=== PATIENT | female | born 1930 | race African-American/Black ===

== ENCOUNTER 2019-02-05 23:37 | Emergency (ER) | payer OTHER ==
[~2019-02-05] VITALS: Ht 170.2 cm; Wt 82.0 kg
[~2019-02-05 23:37] MED LIST: ALLO100T PO; BISO5TAB13 PO; OMEP20CA5 PO; TRAZ-251 PO
[2019-02-06 00:52] LABS: BASOPHILS % 0.5 % (0.0-2.0); EOSINOPHILS % 1.8 % (0.0-5.0); HEMATOCRIT. 39.3 % (36.0-48.0); HEMOGLOBIN. 12.9 g/dL (12.0-16.0); LYMPHOCYTES % 44.8 % (20.0-50.0); MEAN CORPUSCULAR HEMOGLOBIN 35.5 pg (28.0-32.0); MEAN CORPUSCULAR VOLUME 107.9 fL (81.0-99.0); MEAN PLATELET VOLUME 9.1 fl (7.4-10.4); MONOCYTES % 12.1 % (2.0-8.0); NEUTROPHILS % 40.8 % (40.0-76.0); PLATELET 156 x1000/uL (130-400); RED BLOOD CELL COUNT 3.64 mill/uL (4.2-5.4); RED CELL DISTRIBUTION WIDTH 12.8 % (11.6-14.6)
[2019-02-06] MEDS ORDERED: DEXAMETHASONE 10 MG/ML VIAL IV ONE (01:00)
[2019-02-06 01:03] LABS: CHLORIDE 107 mEq/L (98-107)
[2019-02-06 01:07] LABS: ETHANOL BLOOD < 10 mg/dL
[2019-02-06] MEDS ORDERED: LABETALOL 5MG/ML SYR 20 MG/4 ML SYRINGE IV ONE (01:30)
[2019-02-06] MEDS ORDERED: ASPIRIN 300MG SUPP PR ONE (01:30)
[2019-02-06 03:11] LABS: CLARITY URINE CLEAR (CLEAR); COLOR URINE YELLOW (YELLOW); KETONES URINE NEGATIVE (NEGATIVE); LEUKOCYTE ESTERASE URINE 1+ (NEGATIVE); NITRITE URINE NEGATIVE (NEGATIVE); OCCULT BLOOD URINE NEGATIVE (NEGATIVE); PROTEIN URINE 1+ (NEGATIVE)
[2019-02-06 03:21] LABS: *AMPHETAMINES SCREEN URINE NEGATIVE (NEGATIVE); *BARBITURATES SCREEN URINE NEGATIVE (NEGATIVE); *BENZODIAZEPINES SCREEN URINE NEGATIVE (NEGATIVE); *COCAINE SCREEN URINE NEGATIVE (NEGATIVE); METHADONE URINE SCREEN NEGATIVE (NEGATIVE); OPIATES URINE SCREEN PRESUMTIVE POSITIVE (NEGATIVE)
[2019-02-06 03:22] LABS: CANNABINOID URINE SCREEN NEGATIVE (NEGATIVE); PHENCYCLIDINE URINE SCREEN NEGATIVE (NEGATIVE)
[2019-02-06] MEDS ORDERED: LABETALOL 5MG/ML SYR 20 MG/4 ML SYRINGE IV SCH (05:30)
[2019-02-06] MEDS ORDERED: IOHEXOL-350 100 ML BOTTLE ONE (06:14)
[2019-02-06 06:21] VITALS: BP 133/48
== END 2019-02-06 06:51 | disposition short-term general hospital (02) ==
LOC: ER 23:37
DX: R41.82 Altered mental status, unspecified (principal); I63.9 Cerebral infarction, unspecified; D32.0 Benign neoplasm of cerebral meninges; I10 Essential (primary) hypertension; E11.9 Type 2 diabetes mellitus without complications; J45.909 Unspecified asthma, uncomplicated; Z88.8 Allergy status to other drugs, medicaments and biological substances
CPT/HCPCS: 36415; 70450; 70496; 70498; 71045; 80053; 80305; 80307; 80320; 80329; 81003; 82140; 82962; 83690; 84443; 84484; 85025; 93005; 96374; 96376; 99291; J3490; Q9967; J1100; G0480

== ENCOUNTER 2020-11-14 09:44 | Emergency (ER) | payer OTHER ==
[~2020-11-14] VITALS: Ht 165.1 cm; Wt 73.0 kg
[~2020-11-14 09:44] MED LIST changes: +OMEP20CA14 PO; -OMEP20CA5 PO
[2020-11-14] MEDS ORDERED: KETOROLAC 30MG/ML VIAL IV STA (09:53)
[2020-11-14] MEDS ORDERED: ONDANSETRON HCL 4MG/2ML INJ IV STA (09:53)
[2020-11-14 10:47] LABS: BASOPHILS % 0.1 % (0.0-2.0); HEMATOCRIT. 34.1 % (36.0-48.0); HEMOGLOBIN. 11.6 g/dL (12.0-16.0); MEAN CORPUSCULAR HEMOGLOBIN 33.6 pg (28.0-32.0); MEAN CORPUSCULAR VOLUME 98.5 fL (81.0-99.0); MEAN PLATELET VOLUME 7.4 fl (7.4-10.4); MONOCYTES % 5.3 % (2.0-8.0); NEUTROPHILS % 84.6 % (40.0-76.0); PLATELET 395 x1000/uL (130-400); RED BLOOD CELL COUNT 3.46 mill/uL (4.2-5.4); RED CELL DISTRIBUTION WIDTH 11.2 % (11.6-14.6)
[2020-11-14 10:58] LABS: CHLORIDE 99 mEq/L (98-107)
[2020-11-14] MEDS ORDERED: ONDANSETRON HCL 4MG/2ML INJ IV ONE (11:30)
[2020-11-14] MEDS ORDERED: HYDRALAZINE 20MG/ML VIAL IV ONE (12:00)
[2020-11-14] MEDS ORDERED: BENZONATATE 100MG CAPSULE PO ONE (12:00)
[2020-11-14 12:42] VITALS: BP 151/72
[2020-11-23] MEDS ORDERED: AMLO10TA80 PO (13:40)
[2020-11-23] MEDS ORDERED: GABA-532 PO (13:40)
[2020-11-23] MEDS ORDERED: MIRT-89 PO (13:40)
== END 2020-11-14 14:50 | disposition short-term general hospital (02) ==
LOC: ER 09:44
DX: R07.9 Chest pain, unspecified (principal); J45.909 Unspecified asthma, uncomplicated; I11.0 Hypertensive heart disease with heart failure; I50.9 Heart failure, unspecified; E11.9 Type 2 diabetes mellitus without complications; Z88.8 Allergy status to other drugs, medicaments and biological substances
CPT/HCPCS: 36415; 71045; 80053; 83880; 84484; 85025; 96374; 96375; 96376; 99285; J0360; J1885; J2405